=== PATIENT | male | born 1995 | race Caucasian/White ===

== ENCOUNTER 2022-06-11 15:16 | Outpatient (CLI) | payer OTHER, SELFPAY ==
--- NOTE | 2022-06-11 15:57 | XR_ITS ---
WS: [id number] XR shoulder RT min 2V* [id number] REASON FOR EXAM: SHOULDER PAIN RIGHT FINDINGS: No fracture or focal bone lesion. The acromioclavicular joint is without significant abnormality. There is moderate subchondral sclerosis underlying the insertion of the rotator cuff on the greater t uberosity. The glenohumeral joint demonstrates no significant abnormality. XR/XR shoulder RT min 2V* [id number] IMPRESSION: Mild to moderate rotator cuff tendon arthropathy.
== END 2022-06-11 15:17 | disposition home or self-care (01) ==
PROVIDERS: Visit Provider Nurse Practitioner Family
DX: M12.811 Other specific arthropathies, not elsewhere classified, right shoulder (principal)
CPT/HCPCS: 73030

== ENCOUNTER 2022-12-11 11:32 | Outpatient (CLI) | payer OTHER, SELFPAY ==
--- NOTE | 2022-12-11 11:51 | XR_ITS ---
WS: [id number] XR shoulder RT min 2V* [id number] REASON FOR EXAM: UNSPECIFIED INJURY OF RT SHOULDER AND UPPER ARM FINDINGS: No fracture or focal bone lesion. The acromioclavicular joint space is intact and relatively well-preserved. Glenohumeral joint is intact and relatively well-preserved. No significant subarticular bone abnormal ity in the glenoid or humeral head. Mild to moderate subchondral sclerosis in the biceps tuberosity. XR/XR shoulder RT min 2V* [id number] IMPRESSION: Mild to moderate rotator cuff tendon arthropathy. Right shoulder otherwise unre markable. No significant interval change compared to 06/11/2022.
== END 2022-12-11 11:33 | disposition home or self-care (01) ==
PROVIDERS: Visit Provider Family Medicine
DX: S49.91XA Unspecified injury of right shoulder and upper arm, initial encounter (principal); M12.811 Other specific arthropathies, not elsewhere classified, right shoulder; X58.XXXA Exposure to other specified factors, initial encounter
CPT/HCPCS: 73030

== ENCOUNTER 2023-03-10 16:20 | Outpatient (CLI) | payer OTHER, SELFPAY ==
--- NOTE | 2023-03-10 17:19 | XRR_ITS ---
PROCEDURE INFORMATION: Exam: XR Right Foot Exam date and time: 03/10/2023 5:20 PM Age: 27 years old Clinical indication: Injury or trauma; Fall; Sprain or strain; Ankle; Right; Additional info: Foot injury TECHNIQUE: Imaging protocol: Radiologic exam of the right foot. Views: 3 or more views. COMPARISON: No relevant prior studies available. FINDINGS: Bones/joints: Osseous structures are intact. Negative for fracture. Joint spaces are preserved. Soft tissues: Normal. XR/XR foot RT min 3V* [id number] IMPRESSION: No acute findings.
--- NOTE | 2023-03-10 17:19 | XRR_ITS ---
PROCEDURE INFORMATION: Exam: XR Right Ankle Exam date and time: 03/10/2023 5:20 PM Age: 27 years old Clinical indication: Injury or trauma; Fall; Sprain or strain; Ankle; Right TECHNIQUE: Imaging protocol: Radiologic exam of the right ankle. Views: 3 or more views. COMPARISON: No relevant prior studies available. FINDINGS: Bones/joints: Osseous structures are intact. Negative for fracture. Joint spaces are preserved. Soft tissues: Normal. XR/XR ankle RT min 3V* [id number] IMPRESSION: No acute findings.
== END 2023-03-10 16:21 | disposition home or self-care (01) ==
LOC: RAD 16:22
PROVIDERS: PCP Pediatrics; Visit Provider Registered Nurse Neonatal Intensive Care
DX: S93.401A Sprain of unspecified ligament of right ankle, initial encounter (principal); Y93.67 Activity, basketball
CPT/HCPCS: 73610; 73630